=== PATIENT | female | born 2005 | race Caucasian/White ===

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

== ENCOUNTER 2025-08-16 21:38 | Emergency (ER) | payer SELFPAY ==
[2025-08-16] MEDS: Bacitracin Oint 1 GM U/D Packet TOP ONE (22:12)
== END 2025-08-16 22:26 | disposition home or self-care (01) ==
LOC: FB.ED 21:38
DX: S61.213A Laceration without foreign body of left middle finger without damage to nail, initial encounter (principal); E10.9 Type 1 diabetes mellitus without complications; W26.8XXA Contact with other sharp object(s), not elsewhere classified, initial encounter
CPT/HCPCS: 99282